=== PATIENT | female | born 1990 | race Caucasian/White ===

== ENCOUNTER 2016-03-26 08:28 | Emergency (ER) | payer OTHER ==
[~2016-03-26] VITALS: Ht 160 cm; Wt 70.5 kg
[~2016-03-26 08:28] MED LIST: HYDR-4003 PO; LORA0.5T PO; SUMA50TA31 PO
[2016-03-26 08:31] VITALS: BP 118/88; PULSE 94; RESP 15; O2SAT 100
--- NOTE | 2016-03-26 09:44 | ED.REPORT ---
HPI-General Illness Date of Service Mar 26, 2016 ED Provider: Filomena Kirk MD History of Present Illness: She is a 26-year-old female with past medical history of thyroid disorder, audible concussions. Last night patient stated that she was stretching her left leg in a Cheerleading manuver, with hip abducted and internally rotated, knee flexed. Patient head and felt a pop in left knee. Pain radiated up thigh and down to ankle from left knee. Described as crushing throbing, constant, rated 9/10, severe compared to child without pain meds. Taken ibuprofen, And took 1 vicoden. Able to stand on leg last night but woke up and Could not bear weight left leg, unstable left knee, dropped off. No prior knee injuries. Nursing Notes Stated Complaint: LEFT LEG PAIN Chief Complaint: Extremity Trauma Allergies: Coded Allergies: No Known Allergies (Verified Allergy, Unknown, 11/04/15) Scheduled Sumatriptan Succinate (Imitrex) 50 Mg Tablet 50 MG PO PRN Scheduled PRN Hydrocodone-Acetaminophen 5-325 mg (Hydrocodone-Acetaminophen 5-325 mg) 1 Each Tablet 1 TABLET PO Q8H PRN PRN For Pain Lorazepam (Lorazepam) 0.5 Mg Tablet 0.5-1 MG PO HS PRN PRN For Insomnia oxyCODONE-Acetaminophen 5-325 mg (oxyCODONE-Acetaminophen 5-325 mg) 1 Each Tablet 1 TAB PO Q6H PRN PRN For Pain General Time Seen by MD: 09:00 Chief Complaint Other Left knee pain Hx Obtained From: Patient Arrived By: Walk-in Sudden in Onset?: Yes Onset Occurred: 9 - 12 hours ago Symptom Duration: Constant Caused by: Accidental Location: : Knee left Radiation: : Leg left Severity: Current: Pain level 8 out of 10 Severity: Maximum: Pain level 8 out of 10 Past Medical History Past Medical History 3 previous concussions- fell out of 2 story window, 2 from cheerleading "Thyroid problems" Past Surgical History none Smoking History Never Smoker Social History Alcohol Use: "Social" Drug Use: Denies drug use Other Social History: Ambulatory Status Independent Review of Systems Full Review of Systems Constitutional: Denies: Chills, Fatigue, Fever Respiratory: Denies: Dyspnea on exertion, Non-productive cough, Shortness of breath Cardiovascular: Denies: Chest pain, Dyspnea on exertion, Edema GI: Denies: Abdominal pain, Anorexia, Bloody/tarry stool Female: Denies: Dysuria, Flank pain, Hematuria Musculoskeletal: Reports: Joint pain (left knee.), Joint swelling (left knee), Denies: Back pain Neurologic: Denies: Abnormal movement, Headache, Lightheaded, Syncope Complete sys rev & neg: except as marked. Physical Exam Vital Signs Vital Signs Date Time Temp Pulse Resp B/P Pulse Ox O2 Delivery O2 Flow Rate FiO2 03/26/16 09:58 36.6 95 15 120/90 100 Room Air 03/26/16 08:31 36.6 94 15 118/88 100 Room Air Initial VS: Reviewed General/Constitutional: Well-developed, Well-nourished Head / Eyes: Atraumatic, Normocephalic, PERRL ENT: Mucous membranes moist, Conjunctiva normal, No scleral icterus Neck: Supple, Non-tender, Full range of motion Respiratory: Breath sounds normal, Clear to auscultation, No respiratory distress Cardiovascular: Regular rate & rhythm, Heart sounds normal, Intact distal pulses Abdomen / GI: Soft, Non-tender, No guarding, No rebound, No distention Lower Extremity / Pelvis / MS: No erythema, No deformity, Neurologic intact, Vascular intact, No edema Left Knee: Positive: Phi's test positive (left knee), Medial collat lig tender, ROM painful, ROM reduced (unable to flex 90, limited to 20 of flexion) , Swelling present... (Mild), Tenderness present... (current medial joint line) , Negative: Anterior drawer test pos, Ecchymosis present, Patella dislocated, Patella tender, Pre-patellar effusion Left Leg / Calf: Negative: Swelling present..., Tenderness present... Re-Eval/Medical Decision Med Decision/Clinical Course Due to mechanism of injury with a reflection of left leg internal rotation of hip, inability to bear weight, medial joint line tenderness, symptoms and presentation are suggestive of ligamentous damage to left knee DDx medial meniscal tear, MCL tear, anterior cruciate ligament tear negative apprehension sign of patella intact patellar ligament. r/o patellar tendon rupture Patient will need pain management with ibuprofen, by mouth Vicodin Left knee short immobilizer Crutches Discharge Follow-up with orthopedics for re-examination and MRI Discharge & Departure Primary Impression: Left medial knee pain Additional Impression: Left knee pain Chronicity: acute Qualified Code: M25.562 - Pain in left knee Disposition: Home Discharge Condition All VS Reviewed: Yes Condition: Stable Patient Instructions: Crutch Instructions (ED), Knee Sprain (ED), Splint Care ( ED) Additional Instructions: During you visit to [facility] we obtained blood work for infectious markers, hemoglobin levels, and electrolytes. There are signs and symptoms are of a ligamentous injury to your left knee area All your lab values were within normal limits and your imaging showed no acute processes or abnormalities. Your vital signs were stable and safe for discharge. We will send you home with - Pain medications: Percocet 53 25 mg take 1 pill by mouth every 6 hours for pain total count #10 -Left knee short leg immobilizer -Crutches When taking Percocet pain medications DO NOT drive, DO NOT drink alcohol, DO NOT take extra acetaminophen (Tylenol). You may take NSAID like ibuprofen for pain as needed do not exceed 1,200 mg per day You may use ice to the painful area 20 minutes on 30 minutes off Do not hesitate to call emergency services or your primary care physician if you experience any of the following. - High unrelenting fevers. - Uncontrolled vomiting. - Severe hypertension. - Syncope or loss of consciousness. - Chest pain or severe shortness of breath. Follow up with your primary care physician in 1-2 weeks time following your emergency department visit for medication checks and general well-being. Follow-up with orthopedics at next available appointment for repeat examination and MRI of left knee Referrals: Estevan Mclaughlin DO (PCP) Jonathan Hernández DO meniscal tear no MRI imaging available on weekend cannot rule out anterior cruciate ligament/PCL tear Attending Statement Patient seen and examined. Likely knee strain rather than any actual ligamentous damage. If not healing within 1-2 weeks may need advanced imaging to further delineate. copies to: Estevan Mclaughlin AARON J DO Mar 26, 2016 09:09 Filomena Kirk MD Mar 26, 2016 10:07
[2016-03-26] MEDS ORDERED: OXYC1TAB24 PO (09:45)
[2016-03-26 09:58] VITALS: BP 120/90; PULSE 95; RESP 15; O2SAT 100
== END 2016-03-26 10:00 | disposition home or self-care (01) ==
LOC: SED 08:28
DX: M25.562 Pain in left knee (principal); X50.9XXA Other and unspecified overexertion or strenuous movements or postures, initial encounter; Y93.89 Activity, other specified; Y99.8 Other external cause status; Y92.019 Unspecified place in single-family (private) house as the place of occurrence of the external cause